=== PATIENT | female | born 1970 | race African-American/Black ===

== ENCOUNTER 2022-06-10 14:49 | Emergency (ER) | payer OTHER ==
[~2022-06-10] VITALS: Ht 170.2 cm; Wt 90.7 kg
[~2022-06-10 14:49] MED LIST: METFORMIN1000 MG OR; NO HOME MEDS; PROVERA10 MG OR
[2022-06-10] MEDS ORDERED: AMOX/K CLAV875 M1 PO ×2 (16:34→16:35)
[2022-06-10 16:55] VITALS: BP 132/54
== END 2022-06-10 16:55 | disposition home or self-care (01) | DRG 159 ==
LOC: ED 14:49
DX: K08.89 Other specified disorders of teeth and supporting structures (principal)